=== PATIENT | male | born 1985 | race Caucasian/White ===

== ENCOUNTER 2018-01-01 11:38 | Inpatient (IN) | payer BC, SELFPAY ==
[2018-01-01 11:39] VITALS: BP 143/94; PULSE 109; RESP 18; TEMP 36.6; O2SAT 100; BMI 29.1
--- NOTE | 2018-01-01 11:50 | RAD_ITS ---
STUDY: X-RAY - RIGHT FOOT CLINICAL: Male, 32 years old. One-month history of open wound along the plantar surface of the great toe. TECHNIQUE: 3 view(s) of the foot. COMPARISON: None. FINDINGS: Normal talus, calcaneus, and tarsal bones. Normal visualized subtalar, talonavicular, calcaneocuboid, tarsal and tarsometatarsal articulations. Normal metatarsi. Normal metatarsophalangeal joint of the great toe. Normal tibial and fibular sesamoid bones. Normal interphalangeal joint of the great toe. Normal phalanges of the great toe. Normal second through fifth metatarsophalangeal joints. Normal interphalangeal joints and phalanges of the lesser toes. There is evidence of an ulceration along the plantar aspect of the interphalangeal joint of the great toe. Soft tissue swelling. RAD/Foot min 3 Views IMPRESSION: Soft tissue ulceration seen along the plantar aspect of the interphalangeal joint of the great toe Soft tissue swelling. Electronically Signed: Aj Bajwa MD at 13:23 EDT Tel [phone], Service support ,
--- NOTE | 2018-01-01 11:52 | ED.VISSUMM ---
- ER Visit Summary Date of Service: 01/01/18 Chief Complaint: Infected painful right foot History of Present Illness: The patient is a 32 M who presents with pain, swelling redness right foot for the past 1224 hrs. He has a hole on the bottom of his right great toe for the past 2-3 months. 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 He denies history of diabetes. He denies history of rheumatic fever, murmur, SPE, IV drug use to be an immune suppressed. He lives in [place]. He states he is employed in the area [employer]. He reports rash and popping up with penicillin. Please read written note for complete detail Physical Examination: Vital signs are marked for tachycardia. Not febrile. Head is atraumatic normocephalic. Pupils are equal round reactive. Extraocular muscles are intact. TMs are pearly white with landmarks noted. Nares patent with no drainage. Posterior pharynx without erythema or exudate. Uvula is midline. There is no dysphonia or dysphasia. Trachea is midline. There is no stridor with auscultation of the neck. Heart is regular without murmur, gallop or rub. S1 and S2 are normal. Lungs are clear to auscultation with good movement of air bilaterally. Right foot reveals a decubitus that does not appear infected plantar surface of the right great toe. The arch of the right foot is swollen erythematous and exquisitely painful. There may be fluctuance. DP and PT pulses are palpable. He has altered sensation to the foot. There is no lymphangitis. There is no popliteal lymphadenopathy. Test Results: Three-view x-ray of the foot was obtained with no evidence of osteomyelitis. There is ulceration noted on the plantar surface of the right great toe. There is no subtenons air noted either. White count elevated 12.5 thousand with 74 segs no bands. ESR is normal which is not surprising and CRP is elevated at 34.9. CRP rises sooner than ESR especially since onset of symptoms was 12 hours ago. Emergency Department Course and Treatment: X-ray of the foot was obtained to evaluate for subcu air and osteomyelitis since this is been a chronic problem that acutely got worse. Appropriate blood work was obtained and because of his allergy to penicillin he was treated with clindamycin 600 mg IV piggyback. Pharmacy was contacted since I am no longer able to enter clindamycin. Treatment Plan: Patient was informed he in all likelihood will require admission to the hospital with consultation to orthopedics. Disposition: 23 observation IV antibiotics and potential consultation with podiatry Impression: 1. Sepsis 2. Decubitus ulcer plantar surface great toe with cellulitis This note was generated with [employer] dictation software. It may contain incorrect words, spelling, and punctuation that were not noted in review of the chart prior to signing ED Disposition - Plan for ED Patient: Chief Complaint: Wound Check Referrals: NOT,DEFINED [NON-STAFF] -
--- NOTE | 2018-01-01 11:55 | ED.DCSUM_ITS ---
- ER Visit Summary Date of Service: 01/01/18 Chief Complaint: Infected painful right foot History of Present Illness: The patient is a 32 M who presents with pain, swelling redness right foot for the past 1224 hrs. He has a hole on the bottom of his right great toe for the past 2-3 months. 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 He denies history of diabetes. He denies history of rheumatic fever, murmur, SPE, IV drug use to be an immune suppressed. He lives in [place]. He states he is employed in the area [employer]. He reports rash and popping up with penicillin. Please read written note for complete detail Physical Examination: Vital signs are marked for tachycardia. Not febrile. Head is atraumatic normocephalic. Pupils are equal round reactive. Extraocular muscles are intact. TMs are pearly white with landmarks noted. Nares patent with no drainage. Posterior pharynx without erythema or exudate. Uvula is midline. There is no dysphonia or dysphasia. Trachea is midline. There is no stridor with auscultation of the neck. Heart is regular without murmur, gallop or rub. S1 and S2 are normal. Lungs are clear to auscultation with good movement of air bilaterally. Right foot reveals a decubitus that does not appear infected plantar surface of the right great toe. The arch of the right foot is swollen erythematous and exquisitely painful. There may be fluctuance. DP and PT pulses are palpable. He has altered sensation to the foot. There is no lymphangitis. There is no popliteal lymphadenopathy. Test Results: Three-view x-ray of the foot was obtained with no evidence of osteomyelitis. There is ulceration noted on the plantar surface of the right great toe. There is no subtenons air noted either. White count elevated 12.5 thousand with 74 segs no bands. ESR is normal which is not surprising and CRP is elevated at 34.9. CRP rises sooner than ESR especially since onset of symptoms was 12 hours ago. Emergency Department Course and Treatment: X-ray of the foot was obtained to evaluate for subcu air and osteomyelitis since this is been a chronic problem that acutely got worse. Appropriate blood work was obtained and because of his allergy to penicillin he was treated with clindamycin 600 mg IV piggyback. Pharmacy was contacted since I am no longer able to enter clindamycin. Treatment Plan: Patient was informed he in all likelihood will require admission to the hospital with consultation to orthopedics. Disposition: 23 observation IV antibiotics and potential consultation with podiatry Impression: 1. Sepsis 2. Decubitus ulcer plantar surface great toe with cellulitis This note was generated with [employer] dictation software. It may contain incorrect words, spelling, and punctuation that were not noted in review of the chart prior to signing ED Disposition - Plan for ED Patient: Chief Complaint: Wound Check Referrals: NOT,DEFINED [NON-STAFF] -
[2018-01-01 12:23] LABS: Erythrocyte Sedimentation Rate 11 mm/hr (0-15)
[2018-01-01 12:25] LABS: Absolute Lymphocyte Count 1.58 X10^3/ul (0.83-4.51); Absolute Neutrophil Count 9.3 X10^3/uL (2.0-7.7); Basophil# 0.03 X10^3/uL; Basophil% 0.2 % (0-1); Eosinophil# 0.42 X10^3/uL; Eosinophils% 3.4 % (0-5); Hemoglobin 13.4 g/dl (13.0-16.5); Lymphocyte # 1.58 X10^3/ul (4.0); Lymphocyte % 12.6 % (19-41); Mean Corp Hgb Conc 31.9 g/gl (32-36); Mean Corpuscular Hgb 26.6 pg (27.0-32.0); Mean Corpuscular Volume 83.5 fL (80-94); Monocyte# 1.18 X10^3/uL; Monocyte% 9.4 % (0-10); Neutrophil # 9.31 X10^3/uL (2.7-7.7); Neutrophil % 74.3 % (47-70); Platelet Count 326 K/mm3 (150-450); RBC Distribution Width CV 15.5 % (11.6-14.6); RBC Distribution Width SD 47.1 fl (35.1-43.9); Red Blood Count 5.03 M/mm3 (4.6-6.2); White Blood Count 12.5 K/mm3 (4.4-11.0)
[2018-01-01 12:31] LABS: Anion Gap 9 (5-15); BUN 7 mg/dL (7-18); BUN/Creat Ratio 6.7 RATIO (10-20); Calcium,Total 8.8 mg/dL (8.5-10.1); Chloride 103 mmol/L (98-107); Creatinine, Serum 1.05 mg/dL (0.70-1.30); EST Glomerular Filtration Rate 88 mL/min (>60); Est Glom Filt Rate - Afr Amer 106 mL/min (>60); Estimated Creatinine Clearance 111.88 ml/min; Glucose 91 mg/dL (74-106); POSITIVE COUNT NO; POSITIVE DIFFERENTIAL NO; POSITIVE MORPHOLOGY NO; Potassium 3.5 mmol/L (3.5-5.1); Sodium Level 138 mmol/L (136-145)
[2018-01-01] MEDS: 0.9% Normal Saline 1,000 ML 150 ML IV (12:39)
[2018-01-01] MEDS: Ondansetron 4 MG/2 ML Vial IV (12:40)
[2018-01-01] MEDS: Morphine 4 MG/ML Syringe IV (12:40)
[2018-01-01 13:30] VITALS: BP 134/86; PULSE 81; RESP 16; O2SAT 99
--- NOTE | 2018-01-01 13:38 | NURSING ---
[address] [facility]
--- NOTE | 2018-01-01 13:49 | PCM.HP.STD ---
History of Present Illness Date of Admission: 01/01/18 Chief Complaint: Right great toe ulcer for about 3 months The patient is a 32 year old M with history of L5-S1 disc herniation and decreased sensation, most probably from L5 neuropathy in right great toe came to ER with chronic ulcer right great toe for about 3 months. It usually started about blister which popped out resulting into ulcer. Patient denies any fever or chills but had nausea. Patient also took about 1-2 weeks of clindamycin and Bactrim as an outpatient about a month ago without much effect. Is allergic to insulin. Denies any chronic comorbidities including diabetes mellitus, hypertension Past Medical History Allergies Penicillins Allergy (Verified 01/01/18 11:41) Rash Home Medications: Ambulatory Orders Medication Instructions Recorded NK [NK] 01/01/18 Smoking Status: Never smoker - *Family History Paternal History Items: No pertinent history Review of Systems Constitutional: Denies: Chills, Fever, Weight Change HEENT: Denies: Head Aches, Sinus Congestion, Sinus Drainage Cardiovascular: Denies: Chest Pain, Palpitations Respiratory: Denies: Cough, Shortness of breath at rest, Sputum production Gastrointestinal: Reports: Nausea. Denies: Abdominal Pain, Vomiting Genitourinary: Denies: Dysuria Musculoskeletal: Denies: Joint Pain, Joint Tenderness Skin: Reports: Wounds. Denies: Rash Neurological: Denies: Numbness, Tingling, Focal weakness Psychiatric: Denies: Anxiety, Depression, Homicidal Ideations, Suicidal Ideations Hematologic/ Lymphatic: Denies: Easy Bruising, Easy Bleeding VTE Information - Inpt Only VTE Present on Admission: No VTE Mechan Device Prophylaxis: None VTE Pharm Prophylaxis ordered?: No Reason prophylaxis not ordered:: Procedure Not Indicated - Physical Exam General: Alert, Oriented x3, Cooperative HEENT: Atraumatic, PERRLA, EOMI, Normocephalic Neck: Supple, No JVD, Negative Carotid Bruits Lungs: Clear to auscultation, Normal air movement Cardiovascular: Regular rate, Normal S1, Normal S2, No murmurs Abdomen: Bowel Sounds Present, Soft, Non Tender Extremities: No edema, Capillary Refill Less than 3 Seconds Skin: Ulcer/ Wound - Right great toe ulcer about 2 cm on plantar aspect, floor covered with slough. Chronic in nature with fibrosis around it. Musculoskeletal: No Tenderness to Palpation of Joints or Extremities Neurological: Cranial nerves II-XII grossly intact Psych/Mental Status: Normal Affect, Appropriate Vital Signs Temp Pulse Resp BP Pulse Ox 98 F 81 16 134/86 H 99 01/01/18 11:39 01/01/18 13:30 01/01/18 13:30 01/01/18 13:30 01/01/18 13:30 Assessment/Plan The patient is a 32 year old M with history of L5-S1 disc herniation and decreased sensation, most probably from L5 neuropathy in right great toe came to ER with chronic ulcer right great toe for about 3 months. It usually started about blister which popped out resulting into ulcer. Patient denies any fever or chills but had nausea. Patient also took about 1-2 weeks of clindamycin and Bactrim as an outpatient about a month ago without much effect. He is allergic to penicillin. Denies any chronic comorbidities including diabetes mellitus, hypertension 1. Right great toe chronic nonhealing ulcer, plantar aspect: Patient is being admitted on regular [facility] floor for IV antibiotics, wound debridement and podiatry consult. Patient is started on IV cefazolin. Deep wound culture. Foot x-ray shows soft tissue ulceration along the plantar aspect of the interphalangeal joint of great toe but no osteomyelitis. We will leave the decision of MRI on nurse healthcare manager. 2. L5-S1 disc herniation with peripheral neuropathy: Check folic acid and vitamin B12 and A1c. 3. DVT prophylaxis: Low risk. prophylaxis not indicated Clinical Impression(s) from Imaging Studies Foot X-Ray 01/01/18 11:50 IMPRESSION: Soft tissue ulceration seen along the plantar aspect of the interphalangeal joint of the great toe Soft tissue swelling. Laboratory Results 01/01/18 12:05: WBC 12.5 H, RBC 5.03, Hgb 13.4, Hct 42.0, MCV 83.5, MCH 26.6 L, MCHC 31.9 L, RDW 15.5 H, RDW Differential 47.1 H, Plt Count 326, MPV 10.0, Immature Gran % (Auto) 0.100, Neut % (Auto) 74.3 H, Lymph % (Auto) 12.6 L, [place] % (Auto) 9.4, Eos % (Auto) 3.4, Baso % (Auto) 0.2, Absolute Neuts (auto) 9.3 H, Absolute Lymphs (auto) 1.58, Total Counted Not Reportable, ESR 11 01/01/18 12:05: Sodium 138, Potassium 3.5, Chloride 103, Carbon Dioxide 26.0, Anion Gap 9, BUN 7, Creatinine 1.05, Estim Creat Clear Calc 111.88, Est GFR (MDRD) Af Amer 106, Est GFR (MDRD) Non-Af 88, BUN/Creatinine Ratio 6.7 L, Glucose 91, Calcium 8.8, C-React Prot Ext Range 34.90 H Code Visit Inpatient E&M: 83767 Init Hosp L2
[2018-01-01 14:52] VITALS: BMI 30.9; BMI 31.0
[2018-01-01 14:57] VITALS: BP 121/72; PULSE 93; RESP 12; TEMP 37.7; O2SAT 98
--- NOTE | 2018-01-01 15:53 | NURSING ---
wound photo: right great toe
--- NOTE | 2018-01-01 15:53 | NURSING ---
wound photo: right great toe
[2018-01-01] MEDS: oxyCODONE 5 MG Tablet PO (16:02)
[2018-01-01] MEDS: 0.9% Normal Saline 1,000 ML 100 ML IV (16:07)
[2018-01-01 17:21] LABS: Vitamin B12 556 pg/mL (211-911)
--- NOTE | 2018-01-01 18:41 | CON.PCM_ITS ---
Reason for Consult Date of Consultation: 01/01/18 Reason for Consultation: Right great toe ulceration w/ infection History of Present Illness: The patient is a 32 year old gentleman was seen today for right 1st toe ulceration with infection present. He has history of back injury to L5-S1 while in the ; this injury has resolved in peripheral neuropathy, he relates to neuropathic pains in feet, as well as numbness present. He relates he developed a blister to the bottom of the right 1st toe a couple months ago, relates it turned into a wound and has been worsening. He relates today it turned red and rest of foot become painful so he came to the hospital for further evaluation and management. He relates he has been trying to care for the wound at home. He relates he is on feet up to 18-19 hours per day. He relates he had a similar episode like this last year which resulted in him having to go to a wound center and was off work for 6 months, but he relates it did eventually heal - he relates wound was not as bad as it is now. Patient relates he is from [place], [place], here in the area for work. He relates he is planning on going back home to [place] this Sunday. Otherwise patient relates he has no fever, chills, or vomiting. He relates he has had some nausea today. He denies history of diabetes. Due to the ulceration w/ cellulitis, the patient was admitted. Podiatry was consulted by the medicine team. Past Medical History Allergies Penicillins Allergy (Verified 01/01/18 11:41) Rash Home Medications: Ambulatory Orders Medication Instructions Recorded NK [NK] 01/01/18 Smoking Status: Former smoker Tobacco Use: Cigarettes - *Family History Paternal History Items: No pertinent history Review of Systems Constitutional: Denies: Chills, Fever Gastrointestinal: Reports: Vomiting. Denies: Nausea Musculoskeletal: Reports: Foot Pain Skin: Reports: Wounds - Physical Exam General: Alert, Oriented x3, Cooperative, No apparent distress Extremities: No cyanosis, Capillary Refill Less than 3 Seconds, No Calf Tenderness, Edema - Right foot secondary to infection, Peripheral Pulses Normal Skin: Ulcer/ Wound - Quarter sized ulceration plantar hallux IPJ level on the right foot down to the subcataneous tissue layer and flexor tendon, there is serous drainage as well as significant cellulitis to the hallux extending to the dorsal foot, there is central area of nonviable, fibrotic, necrotic tissue of the ulcer site, margins of the ulcer with granular tissue, there is some hyperkeratotic callus to the margins of the ulceration, there is no probe to bone, but probes close to bone as there is soft tissue covering present; there is no maloder, no visible abscess, no fluctuance; there is dorsiflexion deformity of the right hallux with very limited ROM of the hallux IPJ on the right foot. Otherwise no other open lesions bilateral foot/ankle, CFT < 2 seconds to all toes with pedal pulses intact. There is a HPK callus plantar left hallux sub IPJ as well. Sensation absent to the hallux w/ peripheral neuropathy bilateral foot - there is no POP or pain on ROM to the right foot c/ w his peripheral neuropathy. Muscle strength intact and muscle mass WNL otherwise to the foot/ankle. No evidence of compartment syndrome, no hypersensitivity to the foot or ankle bilateral. Vital Signs Temp Pulse Resp BP Pulse Ox 99.8 F H 93 12 121/72 H 98 01/01/18 14:57 01/01/18 14:57 01/01/18 14:57 01/01/18 14:57 01/01/18 14:57 Oxygen Delivery Method Room Air Weight: 103.6 kg Body Mass Index (BMI) 30.9 Laboratory Tests Past 24 Hrs 01/01/18 01/01/18 15:20 16:34 Vitamin B12 556 S.aureus Protein A PCR Pending MRSA (PCR) Pending Assessment/Plan Ulceration down to tendon of the plantar hallux, right foot Cellulitis, right foot Deformed right hallux Concern for osteomyelitis right foot Peripheral neuropathy bilateral lower extremity secondary to back injury while in Reviewed diagnostic data. WBC was noted to be elevated at 12.5, ESR normal, CRP is elevated at 34.9, ha1c is normal. Xrays were obtained of the right foot - these were reviewed, it was noted there is bone changes to the distal medial aspect of the head of the hallux proximal phalanx concerning for osteomyelitis. Also it is noted there is dorsiflexion deformity of the distal phalanx on the proximal phalanx of the hallux w/ subluxation of the hallux IPJ. An MRI has been ordered for further evaluation. A culture has been obtained, and results pending. Patient is on board spectrum IV antibiotic at this time, continue to follow cultures and adjust antibiotics as needed. A dressing of aquacel Ag, 4x4 gauze, kerlix and malika applied to right foot. No weightbearing on right forefoot. This was discussed with patient. Podiatry will continue to follow.
[2018-01-01 19:09] LABS: M R Staph aureus DNA By PCR Negative (Negative); Probe Check PASS; Staph aureus DNA By PCR POSITIVE (Negative)
[2018-01-01] MEDS: Morphine 2 MG/ML Syringe IV (19:21)
[2018-01-01 20:37] VITALS: BP 99/63; PULSE 82; RESP 16; TEMP 37.1; O2SAT 98
[2018-01-02] VITALS (11 sets, daily range): BP systolic 93–162; BP diastolic 57–88; PULSE 67–102; RESP 16–18; TEMP 36.4–37.7; O2SAT 97–100; BMI 30.9
[2018-01-02] MEDS: oxyCODONE 5 MG Tablet PO (02:33)
[2018-01-02 05:53] LABS: Absolute Lymphocyte Count 2.36 X10^3/ul (0.83-4.51); Absolute Neutrophil Count 6.6 X10^3/uL (2.0-7.7); Basophil# 0.03 X10^3/uL; Basophil% 0.3 % (0-1); Eosinophil# 0.58 X10^3/uL; Eosinophils% 5.4 % (0-5); Hematocrit 36.7 % (40-54); Hemoglobin 11.7 g/dl (13.0-16.5); Lymphocyte # 2.36 X10^3/ul (4.0); Lymphocyte % 21.8 % (19-41); Mean Corp Hgb Conc 31.9 g/gl (32-36); Mean Corpuscular Hgb 27.1 pg (27.0-32.0); Mean Platelet Vol. 10.6 fl (6.2-12.0); Monocyte# 1.21 X10^3/uL; Monocyte% 11.2 % (0-10); Platelet Count 315 K/mm3 (150-450); RBC Distribution Width CV 15.6 % (11.6-14.6); RBC Distribution Width SD 48.4 fl (35.1-43.9); Red Blood Count 4.32 M/mm3 (4.6-6.2); White Blood Count 10.8 K/mm3 (4.4-11.0)
[2018-01-02 06:02] LABS: POSITIVE COUNT NO; POSITIVE DIFFERENTIAL NO; POSITIVE MORPHOLOGY NO
[2018-01-02 06:10] LABS: Anion Gap 8 (5-15); BUN 13 mg/dL (7-18); BUN/Creat Ratio 11.6 RATIO (10-20); Calcium,Total 8.6 mg/dL (8.5-10.1); Chloride 106 mmol/L (98-107); Creatinine, Serum 1.12 mg/dL (0.70-1.30); EST Glomerular Filtration Rate 81 mL/min (>60); Est Glom Filt Rate - Afr Amer 98 mL/min (>60); Estimated Creatinine Clearance 104.89 ml/min; Glucose 95 mg/dL (74-106); Potassium 4.2 mmol/L (3.5-5.1); Sodium Level 141 mmol/L (136-145)
[2018-01-02] MEDS: Morphine 2 MG/ML Syringe IV ×3 (07:14→21:45)
[2018-01-02] MEDS: 0.9% NaCl Peripheral Flush Adult/Peds IV ×2 (07:14→21:46)
--- NOTE | 2018-01-02 07:30 | MRI_ITS ---
STUDY: MRI RIGHT FOREFOOT WITHOUT CONTRAST REASON FOR EXAM: Ulcer at the plantar aspect of the great toe for 2 months, osteomyelitis. TECHNIQUE: Standardized fat and water weighted pulse sequences were obtained in all 3 orthogonal planes. COMPARISON: Radiographs 01/01/2018. FINDINGS: Normal metatarsophalangeal joint of the hallux. Normal tibial and fibular sesamoids, with normal sesamoids-first metatarsal articulations. There is bone edema of the proximal and distal phalanges of the great toe (inversion recovery sagittal images 7-15) with corresponding decreased T1 bone marrow signal (T1 sagittal images 8-14) consistent with osteomyelitis. There is a small effusion and dorsal subluxation of the interphalangeal joint of the great toe (inversion recovery sagittal images 10, 11). Normal medial and lateral heads of the flexor hallucis brevis tendons. There is a tear of the flexor hallucis longus tendon retracted to the level of the distal metatarsal diaphysis (inversion recovery sagittal image 8). Normal second through fifth metatarsophalangeal (MTP) joints. Normal interphalangeal joints of the second through fifth toes. Normal proximal, middle and distal phalanges of the second through fifth toes. There is soft tissue fullness at the plantar aspect of the second webspace (T1 series 3 image 21) measuring 0.4 cm in AP dimension. Normal flexor and extensor tendons of the second through fifth toes. Normal visualized metatarsi. There is edema in the flexor hallucis brevis muscles (T2 series 4 images 9-12) suggestive of myositis. There is an ulcer at the plantar aspect of the interphalangeal joint of the great toe. There is edema in the subcutis adipose space without demonstrated soft tissue abscess. There is mild bone edema in the navicular (inversion recovery sagittal images 15-17), likely a stress phenomenon. MRI/Lower Ext/No Jt/w/o IMPRESSION: Osteomyelitis of the proximal and distal phalanges of the great toe. Small effusion and dorsal subluxation of the interphalangeal joint of the great toe. Tear of the flexor hallucis longus tendon. Myositis of the flexor hallucis brevis muscles. Ulcer at the plantar aspect of the great toe and edema in the subcutis adipose space. Soft tissue fullness at the plantar aspect of the second webspace suggestive of a small intermetatarsal neuroma. Mild bone edema in the navicular, likely a stress phenomenon. Electronically Signed: Kirill Altamirano MD at 9:16 EDT Tel , Service support ,
--- NOTE | 2018-01-02 08:02 | PN_ITS ---
Vitals/I&O's: Vital Signs Temp Pulse Resp BP Pulse Ox 98.5 F 78 16 105/57 L 97 01/02/18 07:13 01/02/18 07:13 01/02/18 07:13 01/02/18 07:13 01/02/18 07:13 Oxygen Delivery Method Room Air Weight: 103.6 kg Body Mass Index (BMI) 30.9 Intake and Output for Last 24 Hours 12/31/17 01/01/18 01/02/18 23:59 23:59 23:59 Intake Total 1483 / 1483 Balance 1483 / 1483 Laboratory Results 01/01/18 15:20: S.aureus Protein A PCR POSITIVE H, MRSA (PCR) Negative 01/01/18 16:34: Vitamin B12 556 01/02/18 05:15: WBC 10.8, RBC 4.32 L, Hgb 11.7 L, Hct 36.7 L, MCV 85.0, MCH 27.1 , MCHC 31.9 L, RDW 15.6 H, RDW Differential 48.4 H, Plt Count 315, MPV 10.6, Immature Gran % (Auto) 0.300, Neut % (Auto) 61.0, Lymph % (Auto) 21.8, [place] % ( Auto) 11.2 H, Eos % (Auto) 5.4 H, Baso % (Auto) 0.3, Absolute Neuts (auto) 6.6, Absolute Lymphs (auto) 2.36, Total Counted Not Reportable 01/02/18 05:15: Sodium 141, Potassium 4.2, Chloride 106, Carbon Dioxide 27.0, Anion Gap 8, BUN 13, Creatinine 1.12, Estim Creat Clear Calc 104.89, Est GFR ( MDRD) Af Amer 98, Est GFR (MDRD) Non-Af 81, BUN/Creatinine Ratio 11.6, Glucose 95, Calcium 8.6 Current Medications Acetaminophen (Tylenol) 650 mg PO Q6H PRN PRN PRN Reason: Mild Pain (scale 0-3)/T>100.7 Levofloxacin 500 mg/ N/A 100 mls @ 100 mls/hr IV Q24 DAREK Last Admin: 01/01/18 16:07 Dose: 100 mls/hr Morphine Sulfate () 1 - 2 mg IV Q4H PRN PRN PRN Reason: SEVERE PAIN (6-10/10) Last Admin: 01/02/18 07:14 Dose: 2 mg Ondansetron HCl (Zofran) 4 mg IV Q8H PRN PRN PRN Reason: Nausea Oxycodone HCl (Oxyir) 5 mg PO Q4H PRN PRN PRN Reason: Moderate Pain (pain scale 4-5) Last Admin: 01/02/18 02:33 Dose: 5 mg Sodium Chloride () 5 - 30 ml IV UD PRN PRN Reason: SALINE FLUSH Last Admin: 01/02/18 07:14 Dose: 10 ml Medical Necessity - Tobacco Use Smoking Status: Former smoker Tobacco Use: Cigarettes
--- NOTE | 2018-01-02 10:40 | CASEMGMT ---
Addendum entered by Arabella Larson 01/02/18 13:54: Consult made to Mikayla CALDWELL re: advanced directives. Original Note: SEE RN STEPH ASSESS LINK: D/C PLAN: TBD Intro self and role to RN STEPH. Pt resting in bed, awake/alert/oriented. Pt agreeable to assessment and able to answer all questions appropriately. Pt lives in [place] with his mother and 3-yr-old daughter. -Has been in [place] for about a week working and was planning on returning home in [place] on Sunday. 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 He states his mom is also available to come pick him up to drive him back if needed as well. -Was independent with ambulation and all ADL's prior to admission and required no DME but would like crutches d/t infection and pain to right foot. Script obtained from Dr Peña and faxed to [facility]. Confirmation received from [facility] and they will deliver the crutches to pt's room prior to discharge. -Pharmacy is in [place] but would like [facility] retail pharmacy upon discharge. -States he had HHC last year in [place] for 6 weeks of IV antibiotics but does not remember the name of the C agency. The agency was in [place], [place]. If IV ATB's would need set up in [place] on discharge, states he has no preference of HHC or Infusion supply company from his local area. -Denies having other concerns or needs at this time. CM to continue to follow for any further discharge planning needs that may arise. Chris JARA RN, CM
--- NOTE | 2018-01-02 11:43 | PCM.HP.ID ---
Problem List (1) Osteomyelitis Status: Acute Reason for Consult: osteo Consulted by: Dr. Pierson History of Present Illness: The patient is a 32 year old M with peripheral neuropathy due to disc problem, h/o toe blister and osteo starting a year ago requiring 6 weeks iv abx with picc in [place]. Still with trouble healing that R toe, acutely developed redness, swelling, purulent drainage. No fever or chills. Some nausea. No recent abx. Came to ED, given clinda, changed to levaquin. Podiatry consulted. MRI showed osteo. Full ROS performed and neg except as noted above. - Medical History Allergies/Adverse Reactions: Allergies Penicillins Allergy (Verified 01/01/18 11:41) Rash Home Medications: Ambulatory Orders Medication Instructions Recorded NK [NK] 01/01/18 - Social History Tobacco Use: cigarettes Vital Signs Temp Pulse Resp BP Pulse Ox 98.2 F 80 18 130/79 H 98 01/02/18 09:27 01/02/18 09:33 01/02/18 09:27 01/02/18 09:27 01/02/18 09:27 Oxygen Delivery Method Room Air Weight: 103.6 kg Body Mass Index (BMI) 30.9 Microbiology Past 72 Hours 01/01/18 15:20 Gram Stain - Final Wound Drainage - Aerobic Swab Wound Culture - Preliminary Staphylococcus aureus Laboratory Tests Past 24 Hrs 01/01/18 01/01/18 01/02/18 15:20 16:34 05:15 WBC 10.8 RBC 4.32 L Hgb 11.7 L Hct 36.7 L MCV 85.0 MCH 27.1 MCHC 31.9 L RDW 15.6 H RDW Differential 48.4 H Plt Count 315 MPV 10.6 Immature Gran % (Auto) 0.300 Neut % (Auto) 61.0 Lymph % (Auto) 21.8 [place] % (Auto) 11.2 H Eos % (Auto) 5.4 H Baso % (Auto) 0.3 Absolute Neuts (auto) 6.6 Absolute Lymphs (auto) 2.36 Total Counted Not Reportable Sodium Potassium Chloride Carbon Dioxide Anion Gap BUN Creatinine Estim Creat Clear Calc Est GFR (MDRD) Af Amer Est GFR (MDRD) Non-Af BUN/Creatinine Ratio Glucose Calcium Vitamin B12 556 S.aureus Protein A PCR POSITIVE H MRSA (PCR) Negative 01/02/18 05:15 WBC RBC Hgb Hct MCV MCH MCHC RDW RDW Differential Plt Count MPV Immature Gran % (Auto) Neut % (Auto) Lymph % (Auto) [place] % (Auto) Eos % (Auto) Baso % (Auto) Absolute Neuts (auto) Absolute Lymphs (auto) Total Counted Sodium 141 Potassium 4.2 Chloride 106 Carbon Dioxide 27.0 Anion Gap 8 BUN 13 Creatinine 1.12 Estim Creat Clear Calc 104.89 Est GFR (MDRD) Af Amer 98 Est GFR (MDRD) Non-Af 81 BUN/Creatinine Ratio 11.6 Glucose 95 Calcium 8.6 Vitamin B12 S.aureus Protein A PCR MRSA (PCR) - Other Studies Radiology: [] reviewed Other Studies: [] Route of nutrition/ use of supplements: [] Nutritional Intake: [] IV Site: [] Fuller Catheter: [] - Physical Exam General: Alert, Oriented x3, Cooperative, No apparent distress HEENT: Atraumatic, PERRLA, EOMI Neck: Supple, No Nodes Lungs: Clear to auscultation, Normal air movement Cardiovascular: Regular rate, Regular Rhythm, No murmurs Abdomen: Bowel Sounds Present, Soft, Non Tender, Non-Distended Extremities: No edema Skin: Ulcer/ Wound - R foot wrapped IV Site: Peripheral, without redness Musculoskeletal: No Tenderness to Palpation of Joints or Extremities Neurological: Cranial nerves II-XII grossly intact - Assessment/Plan Antibiotics: [] Assessment/Plan: [] R 1st toe MSSA osteo - Podiatry following. Reports rash with PCN but has tolerated amoxicillin with no issue. He has prior osteo in that toe; interested in amputation now. On levaquin, will add cefazolin and po flagyl. MRSA neg. If amputation is done, should only need short course of po abx. Will follow, thank you.
--- NOTE | 2018-01-02 11:47 | CON.PCM_ITS ---
Problem List (1) Osteomyelitis Status: Acute Reason for Consult: osteo Consulted by: Dr. Pierson History of Present Illness: The patient is a 32 year old M with peripheral neuropathy due to disc problem, h /o toe blister and osteo starting a year ago requiring 6 weeks iv abx with picc in [place]. Still with trouble healing that R toe, acutely developed redness, swelling, purulent drainage. No fever or chills. Some nausea. No recent abx. Came to ED, given clinda, changed to levaquin. Podiatry consulted. MRI showed osteo. Full ROS performed and neg except as noted above. - Medical History Allergies/Adverse Reactions: Allergies Penicillins Allergy (Verified 01/01/18 11:41) Rash Home Medications: Ambulatory Orders Medication Instructions Recorded NK [NK] 01/01/18 - Social History Tobacco Use: cigarettes Vital Signs Temp Pulse Resp BP Pulse Ox 98.2 F 80 18 130/79 H 98 01/02/18 09:27 01/02/18 09:33 01/02/18 09:27 01/02/18 09:27 01/02/18 09:27 Oxygen Delivery Method Room Air Weight: 103.6 kg Body Mass Index (BMI) 30.9 Microbiology Past 72 Hours 01/01/18 15:20 Gram Stain - Final Wound Drainage - Aerobic Swab Wound Culture - Preliminary Staphylococcus aureus Laboratory Tests Past 24 Hrs 01/01/18 01/01/18 01/02/18 15:20 16:34 05:15 WBC 10.8 RBC 4.32 L Hgb 11.7 L Hct 36.7 L MCV 85.0 MCH 27.1 MCHC 31.9 L RDW 15.6 H RDW Differential 48.4 H Plt Count 315 MPV 10.6 Immature Gran % (Auto) 0.300 Neut % (Auto) 61.0 Lymph % (Auto) 21.8 [place] % (Auto) 11.2 H Eos % (Auto) 5.4 H Baso % (Auto) 0.3 Absolute Neuts (auto) 6.6 Absolute Lymphs (auto) 2.36 Total Counted Not Reportable Sodium Potassium Chloride Carbon Dioxide Anion Gap BUN Creatinine Estim Creat Clear Calc Est GFR (MDRD) Af Amer Est GFR (MDRD) Non-Af BUN/Creatinine Ratio Glucose Calcium Vitamin B12 556 S.aureus Protein A PCR POSITIVE H MRSA (PCR) Negative 01/02/18 05:15 WBC RBC Hgb Hct MCV MCH MCHC RDW RDW Differential Plt Count MPV Immature Gran % (Auto) Neut % (Auto) Lymph % (Auto) [place] % (Auto) Eos % (Auto) Baso % (Auto) Absolute Neuts (auto) Absolute Lymphs (auto) Total Counted Sodium 141 Potassium 4.2 Chloride 106 Carbon Dioxide 27.0 Anion Gap 8 BUN 13 Creatinine 1.12 Estim Creat Clear Calc 104.89 Est GFR (MDRD) Af Amer 98 Est GFR (MDRD) Non-Af 81 BUN/Creatinine Ratio 11.6 Glucose 95 Calcium 8.6 Vitamin B12 S.aureus Protein A PCR MRSA (PCR) - Other Studies Radiology: [] reviewed Other Studies: [] Route of nutrition/ use of supplements: [] Nutritional Intake: [] IV Site: [] Fuller Catheter: [] - Physical Exam General: Alert, Oriented x3, Cooperative, No apparent distress HEENT: Atraumatic, PERRLA, EOMI Neck: Supple, No Nodes Lungs: Clear to auscultation, Normal air movement Cardiovascular: Regular rate, Regular Rhythm, No murmurs Abdomen: Bowel Sounds Present, Soft, Non Tender, Non-Distended Extremities: No edema Skin: Ulcer/ Wound - R foot wrapped IV Site: Peripheral, without redness Musculoskeletal: No Tenderness to Palpation of Joints or Extremities Neurological: Cranial nerves II-XII grossly intact - Assessment/Plan Antibiotics: [] Assessment/Plan: [] R 1st toe MSSA osteo - Podiatry following. Reports rash with PCN but has tolerated amoxicillin with no issue. He has prior osteo in that toe; interested in amputation now. On levaquin, will add cefazolin and po flagyl. MRSA neg. If amputation is done, should only need short course of po abx. Will follow, thank you.
--- NOTE | 2018-01-02 12:25 | CASEMGMT ---
SW gave pt information for POA in [place], reviewed the form w/pt. Pt states he will likely put his mother down as POA. Pt will follow up to completed forms in [place]. RICH Guidry, TOPOGRAPHICAL DRAFTER
--- NOTE | 2018-01-02 12:49 | PCM.DC ---
- Discharge Diagnoses Current Active Problems: Current Active and Chronic Problems Osteomyelitis (Acute) Reason(s) for Visit for Discharge Instructions: Right foot osteomyelitis You will use the following diet at home:: Regular Your food should be the consistency of: Regular Your liquids should be the consistency of: Regular/Thin Discharge Activity: Return to Normal Activity Additional Instructions: Go straight to the ED in [place] on discharge from the hospital for evaluation for surgery. Allergies/Adverse Reactions: Allergies Penicillins Allergy (Verified 01/01/18 11:41) Rash Medications to take at Discharge NK [NK] 01/01/18 Primary Care Physician: NOT,DEFINED [NON-STAFF] - Please follow up with your Primary Care Physician in: within 2 weeks Test Results: Test results from this visit will be discussed in further detail at your follow-up appointment, if applicable. Proposed Discharge Date: 01/02/18
--- NOTE | 2018-01-02 12:57 | DCINST_ITS ---
- Discharge Diagnoses Current Active Problems: Current Active and Chronic Problems Osteomyelitis (Acute) Reason(s) for Visit for Discharge Instructions: Right foot osteomyelitis You will use the following diet at home:: Regular Your food should be the consistency of: Regular Your liquids should be the consistency of: Regular/Thin Discharge Activity: Return to Normal Activity Additional Instructions: Go straight to the ED in [place] on discharge from the hospital for evaluation for surgery. Allergies/Adverse Reactions: Allergies Penicillins Allergy (Verified 01/01/18 11:41) Rash Medications to take at Discharge NK [NK] 01/01/18 Primary Care Physician: NOT,DEFINED [NON-STAFF] - Please follow up with your Primary Care Physician in: within 2 weeks Test Results: Test results from this visit will be discussed in further detail at your follow- up appointment, if applicable. Proposed Discharge Date: 01/02/18
--- NOTE | 2018-01-02 13:01 | DS.PCM_ITS ---
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
--- NOTE | 2018-01-02 13:35 | CASEMGMT ---
RN STEPH NOTE:: Phone conversation with Dr Peña as follows: -Pt had discharge orders w/plans of pt going back to [place] today and going directly to local hospital in [place] to be admitted for surgery. Dr Peña states he is cancelling discharge at this time and is planning on doing surgery today. Pt is aware and is agreeable to this and denies having any questions or concerns at this time. -Dr Peña anticipates discharge Sunday or Sunday with pt returning to [place] at that time. Per Dr Isaac consultation report, anticipates oral antibiotics on discharge if amputation done. CM to follow for any further discharge planning needs that may arise. Chris JARA RN CM
[2018-01-02] MEDS: Cefazolin 2 GM in 0.9% Normal Saline 100 ML IV ×2 (14:27→21:46)
--- NOTE | 2018-01-02 16:05 | PCM.PN.HOSP ---
Patient Problems: Active and Suspected Problems Osteomyelitis (Acute) Subjective: Patient was seen and examined. Denies any new complaints. Denies any fever or chills or shortness of breath. No nausea or vomiting or diarrhea. Discussed extensively with Dr. Peña, patient's MRI shows osteomyelitis of the proximal and distal phalanges of the great toe with a small effusion and dorsal subluxation of the interphalangeal joint of the great toe as well as tear of the flexor hallucis longus tendon and myositis of the flexor hallucis brevis muscles. The initial plan was patient will be discharged to follow-up in an [facility] in [place] for I&D and possible amputation. Patient was subsequently discharged to go straight to the ED but upon further discussion with Dr. Bernal and, patient reports [facility] has no personal care home administrator and it looks like is going to be taxing for him to get to the [facility]. Upon discussion, patient had agreed to stay for I&D and possibly be discharged on Sunday. Vitals/I&O's: Vital Signs Temp Pulse Resp BP Pulse Ox 98.3 F 100 18 162/88 H 98 01/02/18 14:23 01/02/18 14:23 01/02/18 14:23 01/02/18 14:23 01/02/18 14:23 Oxygen Delivery Method Room Air Weight: 103.6 kg Body Mass Index (BMI) 30.9 Intake and Output for Last 24 Hours 12/31/17 01/01/18 01/02/18 23:59 23:59 23:59 Intake Total 2062 Balance 2062 General: Alert, Oriented x3, Cooperative HEENT: Atraumatic, PERRLA, EOMI, Normocephalic Oral: Moist Mucosa Neck: Supple, No JVD, Negative Carotid Bruits Lungs: Clear to auscultation, Normal air movement Cardiovascular: Regular rate, Regular Rhythm, Normal S1, Normal S2, No murmurs Abdomen: Bowel Sounds Present, Soft, Non Tender, Non-Distended, No Hepato-splenomegaly Extremities: Edema - Trace edema of the right lower extremity, right foot dressed up and malika-wrapped. Skin: No rashes, No breakdown Musculoskeletal: No Tenderness to Palpation of Joints or Extremities Neurological: Cranial nerves II-XII grossly intact Psych/Mental Status: Normal Affect, Appropriate Microbiology Past 72 Hours 01/01/18 15:20 Wound Drainage - Aerobic Swab Gram Stain - Final 01/01/18 15:20 Wound Drainage - Aerobic Swab Wound Culture - Preliminary Staphylococcus aureus Laboratory Results 01/01/18 15:20: S.aureus Protein A PCR POSITIVE H, MRSA (PCR) Negative 01/01/18 16:34: Vitamin B12 556 01/02/18 05:15: WBC 10.8, RBC 4.32 L, Hgb 11.7 L, Hct 36.7 L, MCV 85.0, MCH 27.1, MCHC 31.9 L, RDW 15.6 H, RDW Differential 48.4 H, Plt Count 315, MPV 10.6, Immature Gran % (Auto) 0.300, Neut % (Auto) 61.0, Lymph % (Auto) 21.8, [place] % (Auto) 11.2 H, Eos % (Auto) 5.4 H, Baso % (Auto) 0.3, Absolute Neuts (auto) 6.6, Absolute Lymphs (auto) 2.36, Total Counted Not Reportable 01/02/18 05:15: Sodium 141, Potassium 4.2, Chloride 106, Carbon Dioxide 27.0, Anion Gap 8, BUN 13, Creatinine 1.12, Estim Creat Clear Calc 104.89, Est GFR (MDRD) Af Amer 98, Est GFR (MDRD) Non-Af 81, BUN/Creatinine Ratio 11.6, Glucose 95, Calcium 8.6 Current Medications Acetaminophen (Tylenol) 650 mg PO Q6H PRN PRN PRN Reason: Mild Pain (scale 0-3)/T>100.7 Levofloxacin 500 mg/ N/A 100 mls @ 100 mls/hr IV Q24 [facility] Last Admin: 01/02/18 09:39 Dose: 100 mls/hr Cefazolin Sodium 2 gm/ Sodium (Chloride) 110 mls @ 150 mls/hr IV Q8 [facility] Last Admin: 01/02/18 14:27 Dose: 150 mls/hr Metronidazole (Flagyl) 500 mg PO TID [facility] Morphine Sulfate () 1 - 2 mg IV Q4H PRN PRN PRN Reason: SEVERE PAIN (6-10/10) Last Admin: 01/02/18 14:28 Dose: 2 mg Ondansetron HCl (Zofran) 4 mg IV Q8H PRN PRN PRN Reason: Nausea Oxycodone HCl (Oxyir) 5 mg PO Q4H PRN PRN PRN Reason: Moderate Pain (pain scale 4-5) Last Admin: 01/02/18 02:33 Dose: 5 mg Sodium Chloride () 5 - 30 ml IV UD PRN PRN Reason: SALINE FLUSH Last Admin: 01/02/18 07:14 Dose: 10 ml Medical Necessity - Tobacco Use Smoking Status: Former smoker Tobacco Use: Cigarettes Assessment/Plan All Active Problems Osteomyelitis (Acute) 32-year-old male, resident in [place], working in [email or web address] at the moment, history of peripheral neuropathy secondary to traumatic back injury/herniated disc who comes in with complaints of infected painful right foot. 1. Right proximal and distal great toe phalanges osteomyelitis, cultures growing MSSA, MRSA PCR is negative ID podiatry consulted, On IV cefazolin, Levaquin and p.o. Flagyl 2. Right foot myositis with possible abscess, in the region of the ulcer, going for wound debridement and I & D tomorrow, On antibiotics 3. Peripheral neuropathy 4. DVT prophylaxis with early ambulation Code Visit Inpatient E&M: 54928 Subs Hosp L2
--- NOTE | 2018-01-02 16:10 | PN_ITS ---
Patient Problems: Active and Suspected Problems Osteomyelitis (Acute) Subjective: Patient was seen and examined. Denies any new complaints. Denies any fever or chills or shortness of breath. No nausea or vomiting or diarrhea. Discussed extensively with Dr. Peña, patient's MRI shows osteomyelitis of the proximal and distal phalanges of the great toe with a small effusion and dorsal subluxation of the interphalangeal joint of the great toe as well as tear of the flexor hallucis longus tendon and myositis of the flexor hallucis brevis muscles. The initial plan was patient will be discharged to follow-up in an [facility] in [place] for I&D and possible amputation. Patient was subsequently discharged to go straight to the ED but upon further discussion with Dr. Bernal and, patient reports [facility] has no pmp project manager and it looks like is going to be taxing for him to get to the [facility]. Upon discussion, patient had agreed to stay for I&D and possibly be discharged on Sunday. Vitals/I&O's: Vital Signs Temp Pulse Resp BP Pulse Ox 98.3 F 100 18 162/88 H 98 01/02/18 14:23 01/02/18 14:23 01/02/18 14:23 01/02/18 14:23 01/02/18 14:23 Oxygen Delivery Method Room Air Weight: 103.6 kg Body Mass Index (BMI) 30.9 Intake and Output for Last 24 Hours 12/31/17 01/01/18 01/02/18 23:59 23:59 23:59 Intake Total 2062 Balance 2062 General: Alert, Oriented x3, Cooperative HEENT: Atraumatic, PERRLA, EOMI, Normocephalic Oral: Moist Mucosa Neck: Supple, No JVD, Negative Carotid Bruits Lungs: Clear to auscultation, Normal air movement Cardiovascular: Regular rate, Regular Rhythm, Normal S1, Normal S2, No murmurs Abdomen: Bowel Sounds Present, Soft, Non Tender, Non-Distended, No Hepato- splenomegaly Extremities: Edema - Trace edema of the right lower extremity, right foot dressed up and malika-wrapped. Skin: No rashes, No breakdown Musculoskeletal: No Tenderness to Palpation of Joints or Extremities Neurological: Cranial nerves II-XII grossly intact Psych/Mental Status: Normal Affect, Appropriate Microbiology Past 72 Hours 01/01/18 15:20 Wound Drainage - Aerobic Swab Gram Stain - Final 01/01/18 15:20 Wound Drainage - Aerobic Swab Wound Culture - Preliminary Staphylococcus aureus Laboratory Results 01/01/18 15:20: S.aureus Protein A PCR POSITIVE H, MRSA (PCR) Negative 01/01/18 16:34: Vitamin B12 556 01/02/18 05:15: WBC 10.8, RBC 4.32 L, Hgb 11.7 L, Hct 36.7 L, MCV 85.0, MCH 27.1 , MCHC 31.9 L, RDW 15.6 H, RDW Differential 48.4 H, Plt Count 315, MPV 10.6, Immature Gran % (Auto) 0.300, Neut % (Auto) 61.0, Lymph % (Auto) 21.8, [place] % ( Auto) 11.2 H, Eos % (Auto) 5.4 H, Baso % (Auto) 0.3, Absolute Neuts (auto) 6.6, Absolute Lymphs (auto) 2.36, Total Counted Not Reportable 01/02/18 05:15: Sodium 141, Potassium 4.2, Chloride 106, Carbon Dioxide 27.0, Anion Gap 8, BUN 13, Creatinine 1.12, Estim Creat Clear Calc 104.89, Est GFR ( MDRD) Af Amer 98, Est GFR (MDRD) Non-Af 81, BUN/Creatinine Ratio 11.6, Glucose 95, Calcium 8.6 Current Medications Acetaminophen (Tylenol) 650 mg PO Q6H PRN PRN PRN Reason: Mild Pain (scale 0-3)/T>100.7 Levofloxacin 500 mg/ N/A 100 mls @ 100 mls/hr IV Q24 [facility] Last Admin: 01/02/18 09:39 Dose: 100 mls/hr Cefazolin Sodium 2 gm/ Sodium (Chloride) 110 mls @ 150 mls/hr IV Q8 [facility] Last Admin: 01/02/18 14:27 Dose: 150 mls/hr Metronidazole (Flagyl) 500 mg PO TID [facility] Morphine Sulfate () 1 - 2 mg IV Q4H PRN PRN PRN Reason: SEVERE PAIN (6-10/10) Last Admin: 01/02/18 14:28 Dose: 2 mg Ondansetron HCl (Zofran) 4 mg IV Q8H PRN PRN PRN Reason: Nausea Oxycodone HCl (Oxyir) 5 mg PO Q4H PRN PRN PRN Reason: Moderate Pain (pain scale 4-5) Last Admin: 01/02/18 02:33 Dose: 5 mg Sodium Chloride () 5 - 30 ml IV UD PRN PRN Reason: SALINE FLUSH Last Admin: 01/02/18 07:14 Dose: 10 ml Medical Necessity - Tobacco Use Smoking Status: Former smoker Tobacco Use: Cigarettes Assessment/Plan All Active Problems Osteomyelitis (Acute) 32-year-old male, resident in [place], working in [place] at the moment, history of peripheral neuropathy secondary to traumatic back injury/herniated disc who comes in with complaints of infected painful right foot. 1. Right proximal and distal great toe phalanges osteomyelitis, cultures growing MSSA, MRSA PCR is negative ID podiatry consulted, On IV cefazolin, Levaquin and p.o. Flagyl 2. Right foot myositis with possible abscess, in the region of the ulcer, going for wound debridement and I & D tomorrow, On antibiotics 3. Peripheral neuropathy 4. DVT prophylaxis with early ambulation Code Visit Inpatient E&M: 25853 Subs Hosp L2
--- NOTE | 2018-01-02 16:35 | NURSING ---
call placed to ac and report given to RN who will be taken over care of pt
--- NOTE | 2018-01-02 16:48 | CHAPLAIN ---
Type of Pastoral Visit _x__ Initial Visit ___ Follow-up Visit ___ On-call Visit ___ General Patient Visit ___ Spiritual Assessment ___ Family Conference ___ Bereavement ___ Rapid Response ___ Code Blue ___ Other (describe below) Pastoral Care Referral From _x__ Patient ___ Family ___ Nurse ___ Physician ___ Freight Flow Sales Leader ___ Dump Truck Driver Off Highway ___ Other (describe below) Sacrament/Intervention _x__ Active listening ___ Anointing ___ Gnosticism ___ Bereavement ___ Communion _x__ Elis exploration ___ _x__ Life review _x__ Prayer ___ Reconciliation ___ Sacrament of Sick _x__ Supportive presence ___ Wedding ___ Other (describe below) Pastoral Comments patient is out of state on a work assignment; no family available; pt is headed to surgery soon; pt requested prayer and visit
[2018-01-02] MEDS: Bupivacaine Mpf 0.5% 30 ML VIAL (19:41)
--- NOTE | 2018-01-02 19:50 | PCM.OPRPT ---
Report of Operation Date of Procedure: 01/02/18 Pre-Operative Diagnosis: Osteomyelitis 1st Toe, right foot. 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 Deep culture plantar medial arch right foot. 2. Bone from right 1st metatarsal as clearance fragment sent to microbiology and pathology. 3. Amputated right hallux sent to microbiology and pathology. 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 He has developed ulceration to the plantar right hallux which is necrotic and osteomyelitis is present as seen on xray and MRI imaging. There is significant cellulitis, to the right foot, and myositis to the plantar medial arch of the foot. He has significant pain and hypersensitivity along with significant edema and induration to the plantar arch of the foot consistent with infection. Patient is from [place], [place], here for work, planning to leave on Sunday. Discussed the options with the patient, due to the findings of significant infection, patient was brought to the operating room for incision and drainage, along with debridement and hallux amputation of the right foot. This was discussed with him in detail, reviewed the rationale of this with him, along with the possible benefits vs risks, goals, expectations and alternative options. Patient was advised the risks include but are not limited to pain, worsening, recurrence, need for further surgery, complex regional pain syndrome, numbness, swelling, weakness, transfer lesions, deformity, loss of limb, loss of life. He agreed and able to repeat back. The consent form was reviewed with patient and he freely signed it. No guarantees were given nor implied. Operative procedure: The patient was brought back to the operating room and was placed on the operating room int he supine position. He was already on IV antibiotics. A well padded pneumatic tourniquet was applied around the right ankle. A timeout was performed and the patient was proper identified and surgical plan was confirmed. The patient received general anesthesia per the anesthesia team. The right foot was scrubbed, prepped, draped in the usual aseptic fashion. Further attention was directed to the right foot. There was noted to be necrotic ulceration plantar right hallux sub interphalangeal joint probing deep to the flexor tendon and close to bone. There was maloder from the ulceration, there was significant cellulitis to the foot with drainage consistent with infection, there was significant edema, induration and cellulitis to the plantar arch of the foot as well; it was very tense. The right foot was elevated for 3 minutes and the right ankle pneumatic tourniquet was inflated to 250mmHg. Using a 15 scalpel blade, a longitudinal incision was made the plantar medial arch of the foot, there was immediate drainage from the site consistent with infection. Careful blunt dissection was completed down to the flexor hallucis muscle and flexor hallucis tendon, there was further drainage consistent with infection. The tissues were decompressed and allowed to drain. At this time an incision was made around the base of the hallux creating a flap. This was made using a 15 scalpel blade. The bone of the hallux proximal and distal phalanges were noted to be soft, yellow, nonviable and infected. The hallux was resected at the level of the 1st metatarsal phalangeal joint. There was noted to be purulence within the 1st metatarsal phalangeal joint as well which was drained. The sesamoids were removed as well as it appeared the infection was spreading to this level as well. The resected hallux and sesamoids were sent to pathology, with a piece of bone from the resected hallux sent to microbiology for culture. There was chronic abscess noted to the soft tissues at level of the 1st metatarsal phalangeal joint which were debrided out down to healthy viable normal tissue using a 15 scalpel blade. The sites were flushed out with copious amounts of normal saline solution. A bone culture / clearance fragment biopsy was completed to the 1st metatarsal head - sent to microbiology and pathology. The 1st metatarsal bone at this level did appear healthy, viable, white, had intact healthy cartilage, and appeared free of infection. At this time all remaining tissue appeared healthy, viable and free of infection with tissue planes intact. The sites were flushed out with copious amounts of normal saline solution. The skin at level of the hallux resection site were loosely reapproximated using 3-0 Nylon, this site was packed with 1/2 inch Iodoform packing. The plantar incision and drainage site was left open to drain and was packed with 1/2inch Iodoform packing. A total of 20mL of 0.5% Bupivacaine was given as a local nerve block around the right foot surgical site to aid with post procedure pain control. The pneumatic tourniquet was deflated and there was immediate return of warmth and perfusion to the foot, CFT< 2 seconds to all toes and pedal pulses intact. Total tourniquet time was 61 minutes. A dressing was applied which consisted of Betadine soaked adaptic, 4x4 gauze, Kerlix and an malika bandage. The patient tolerated the above procedure well and anesthesia well with no complications. He was transported from the operating room to the recovery room with vital signs stable and in good condition. Post operative orders were placed. Post operating instructions were reviewed - no weightbearing right foot, and keep right foot elevated. Will continue to follow up as inpatient. Grafts/Implants Used: None - Complications None
--- NOTE | 2018-01-02 19:53 | OP.PCM_ITS ---
Report of Operation Date of Procedure: 01/02/18 Pre-Operative Diagnosis: Osteomyelitis 1st Toe, right foot. 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 Deep culture plantar medial arch right foot. 2. Bone from right 1st metatarsal as clearance fragment sent to microbiology and pathology. 3. Amputated right hallux sent to microbiology and pathology. 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 He has developed ulceration to the plantar right hallux which is necrotic and osteomyelitis is present as seen on xray and MRI imaging. There is significant cellulitis, to the right foot, and myositis to the plantar medial arch of the foot. He has significant pain and hypersensitivity along with significant edema and induration to the plantar arch of the foot consistent with infection. Patient is from [place], [place], here for work, planning to leave on Sunday. Discussed the options with the patient, due to the findings of significant infection, patient was brought to the operating room for incision and drainage, along with debridement and hallux amputation of the right foot. This was discussed with him in detail, reviewed the rationale of this with him, along with the possible benefits vs risks, goals , expectations and alternative options. Patient was advised the risks include but are not limited to pain, worsening, recurrence, need for further surgery, complex regional pain syndrome, numbness, swelling, weakness, transfer lesions, deformity, loss of limb, loss of life. He agreed and able to repeat back. The consent form was reviewed with patient and he freely signed it. No guarantees were given nor implied. Operative procedure: The patient was brought back to the operating room and was placed on the operating room int he supine position. He was already on IV antibiotics. A well padded pneumatic tourniquet was applied around the right ankle. A timeout was performed and the patient was proper identified and surgical plan was confirmed. The patient received general anesthesia per the anesthesia team. The right foot was scrubbed, prepped, draped in the usual aseptic fashion. Further attention was directed to the right foot. There was noted to be necrotic ulceration plantar right hallux sub interphalangeal joint probing deep to the flexor tendon and close to bone. There was maloder from the ulceration, there was significant cellulitis to the foot with drainage consistent with infection, there was significant edema, induration and cellulitis to the plantar arch of the foot as well; it was very tense. The right foot was elevated for 3 minutes and the right ankle pneumatic tourniquet was inflated to 250mmHg. Using a 15 scalpel blade, a longitudinal incision was made the plantar medial arch of the foot, there was immediate drainage from the site consistent with infection. Careful blunt dissection was completed down to the flexor hallucis muscle and flexor hallucis tendon, there was further drainage consistent with infection. The tissues were decompressed and allowed to drain. At this time an incision was made around the base of the hallux creating a flap. This was made using a 15 scalpel blade. The bone of the hallux proximal and distal phalanges were noted to be soft, yellow, nonviable and infected. The hallux was resected at the level of the 1st metatarsal phalangeal joint. There was noted to be purulence within the 1st metatarsal phalangeal joint as well which was drained. The sesamoids were removed as well as it appeared the infection was spreading to this level as well. The resected hallux and sesamoids were sent to pathology, with a piece of bone from the resected hallux sent to microbiology for culture. There was chronic abscess noted to the soft tissues at level of the 1st metatarsal phalangeal joint which were debrided out down to healthy viable normal tissue using a 15 scalpel blade. The sites were flushed out with copious amounts of normal saline solution. A bone culture / clearance fragment biopsy was completed to the 1st metatarsal head - sent to microbiology and pathology. The 1st metatarsal bone at this level did appear healthy, viable, white, had intact healthy cartilage, and appeared free of infection. At this time all remaining tissue appeared healthy, viable and free of infection with tissue planes intact. The sites were flushed out with copious amounts of normal saline solution. The skin at level of the hallux resection site were loosely reapproximated using 3-0 Nylon, this site was packed with 1/2 inch Iodoform packing. The plantar incision and drainage site was left open to drain and was packed with 1/2inch Iodoform packing. A total of 20mL of 0.5% Bupivacaine was given as a local nerve block around the right foot surgical site to aid with post procedure pain control. The pneumatic tourniquet was deflated and there was immediate return of warmth and perfusion to the foot, CFT < 2 seconds to all toes and pedal pulses intact. Total tourniquet time was 61 minutes. A dressing was applied which consisted of Betadine soaked adaptic, 4x4 gauze, Kerlix and an malika bandage. The patient tolerated the above procedure well and anesthesia well with no complications. He was transported from the operating room to the recovery room with vital signs stable and in good condition. Post operative orders were placed. Post operating instructions were reviewed - no weightbearing right foot , and keep right foot elevated. Will continue to follow up as inpatient. Grafts/Implants Used: None - Complications None
--- NOTE | 2018-01-02 20:20 | RAD_ITS ---
STUDY: X-RAY - RIGHT FOOT CLINICAL: Male, 32 years old. Postop right foot. TECHNIQUE: 3 view(s) of the foot. COMPARISON: Right foot, January 01, 2018. FINDINGS: There is been interval amputation of the first digit at the level of the metatarsophalangeal joint. Air is seen in the overlying soft tissues. There is no other major interval change when compared to the previous examination. RAD/Foot min 3 Views IMPRESSION: Amputation of the first digit with diffuse soft tissue swelling about the medial forefoot. Electronically Signed: Herman Rubio DO at 21:18 EDT Tel [phone], Service support ,
[2018-01-02] MEDS: metroNIDAZOLE 500 MG Tablet PO (21:46)
[2018-01-02] MEDS: Acetaminophen 325 MG Tablet 650 MG PO (22:58)
--- NOTE | 2018-01-03 | BON_PTH ---
PATIENT: FERNIE JOHNSTON LOC: MS2 U#:[id number] AGE/SX: 32/M ROOM: [facility] [place] RE01/01/[address]: Dr. Belkis Pierson MD : 1985 BED: 1 DIS: 01/04/2018 SPEC #: [id number] RECD: 01/03/18 12:23 STATUS: JAVY REQ #: [id number] ANDRE: 01/03/18 00:[address]: Rito Peña DEPT: SURGICAL PATHOLOGY RECD BY: Alvaro Nance ENTERED: 01/03/18 12:24 SP TYPE: Bone OTHR DR: MD Dr. Rito Barney, DPM MD Dr. Hussein Valdez MD Out of [facility] Doctor Tissues: A - Bone of foot, NOS B - Toe, NOS Procedures: Decalcification bone/plaque Special Stain Group I Surgery Specimen Level III Surgery Specimen Level IV AFB Stain (control) GMS Stain (control) Comments: @ Ordering doctor for DEC edited from to @ by DANIEL at 01/03/18 1504 @ Ordering doctor for SUIII edited from to @ by DANIEL at 01/03/18 1504 @ Ordering doctor for SUIV edited from to @ by DANIEL at 01/03/18 1504 @ Submitting doctor edited from to DR.JWUNNI Fallon by RGOOD at 01/03/18 1504 HEADER OPERATION: I & D foot, hallux amputation PRE-OP DIAGNOSIS: Right foot osteomyelitis TISSUE SUBMITTED: A - Clearance fragment right first metatarsal bone, B - Right great toe MICROSCOPIC DIAGNOSIS A. Clearance fragment right first metatarsal bone: A piece of bone, negative for acute osteomyelitis. B. Right great toe, amputation: Pieces of skin and underlying tissue and detached pieces of soft tissue with focal ulceration, acute and chronic inflammation, granulation tissue reaction and abscess formation. Bone with chronic inflammation and reactive changes, negative for acute osteomyelitis. Special stains for acid fast bacilli and fungi are negative for organisms; matched controls are appropriate. SJ:wilfredo 01/09/18 MICROSCOPIC DESCRIPTION Slides are reviewed. GROSS DESCRIPTION A - Received in fixative is one container labeled with the patient's name and designated clearance fragment right first metatarsal bone. The specimen consists of a piece of bone measuring 0.5 cm in length and up to 0.3 cm in diameter. The entire specimen is submitted in one cassette after decalcification. B - Received in fixative is one container labeled with the patient's name and designated right great toe. The specimen consists of a portion of toe measuring 6.5 x 3.5 x 3 cm. A focal area of ulceration is noted on the plantar surface of the toe measuring 2 cm in greatest dimension. This ulcerated area is 0.2 cm away from the cutaneous resection margin. A focal area of ulceration is also noted at the tip of the toe. The nail appears atrophic. A focal area of hemorrhage is also noted. Also present in the container are detached pieces of soft tissue and skin measuring in aggregate 5 x 4 x 2 cm. Health Lead sections are submitted in four cassettes as follows: 1 - ulcerated area on the toe, 2 - detached pieces of soft tissue and skin, 3 & 4 - bone after decalcification. / SJ:rg 01/03/18 TC:2 CPT: 12662, 43055, 28544 x2, 16764 x2
[2018-01-03 00:44] VITALS: BP 126/73; PULSE 95; RESP 16; TEMP 37.6; O2SAT 97
[2018-01-03] MEDS: Morphine 2 MG/ML Syringe IV ×5 (01:54→21:15)
[2018-01-03] MEDS: metroNIDAZOLE 500 MG Tablet PO (05:45)
[2018-01-03] MEDS: Cefazolin 2 GM in 0.9% Normal Saline 100 ML IV (05:46)
[2018-01-03 05:48] VITALS: BP 118/69; PULSE 77; RESP 16; TEMP 36.9; O2SAT 99
[2018-01-03 08:45] VITALS: BP 107/64; PULSE 87; RESP 18; TEMP 37.2; O2SAT 97
[2018-01-03] MEDS: Acetaminophen 325 MG Tablet 650 MG PO (08:50)
[2018-01-03] MEDS: oxyCODONE 5 MG Tablet PO ×2 (08:50→14:11)
--- NOTE | 2018-01-03 09:17 | PN_ITS ---
Patient Problems: Active and Suspected Problems Osteomyelitis (Acute) Subjective: He was seen and examined. No acute events overnight. Denies any pain. Vitals/I&O's: Vital Signs Temp Pulse Resp BP Pulse Ox 98.9 F 87 18 107/64 97 01/03/18 08:45 01/03/18 08:45 01/03/18 08:45 01/03/18 08:45 01/03/18 08:45 Oxygen Delivery Method Room Air Weight: 103.6 kg Body Mass Index (BMI) 30.9 Intake and Output for Last 24 Hours 01/01/18 01/02/18 01/03/18 23:59 23:59 23:59 Intake Total 3063 / 3063 492 / 492 Balance 3063 / 3063 492 / 492 General: Alert, Oriented x3, Cooperative HEENT: Atraumatic, PERRLA, EOMI, Normocephalic Neck: Supple, No JVD, Negative Carotid Bruits Lungs: Clear to auscultation, Normal air movement Cardiovascular: Regular rate, No murmurs Abdomen: Bowel Sounds Present, Soft, Non Tender, Non-Distended Extremities: Edema - Trace of the right lower extremity, dressing postsurgical in place with Abner wraps also Skin: No rashes, No breakdown Musculoskeletal: No Tenderness to Palpation of Joints or Extremities Lymphatic: No Cervical, Supraclavicular, or Inguinal Adenopathy Neurological: Cranial nerves II-XII grossly intact Psych/Mental Status: Normal Affect, Appropriate Microbiology Past 72 Hours 01/01/18 15:20 Wound Drainage - Aerobic Swab Gram Stain - Final 01/01/18 15:20 Wound Drainage - Aerobic Swab Wound Culture - Preliminary Staphylococcus aureus Current Medications Acetaminophen (Tylenol) 650 mg PO Q6H PRN PRN PRN Reason: Mild Pain (scale 0-3)/T>100.7 Last Admin: 01/03/18 08:50 Dose: 650 mg Levofloxacin 500 mg/ N/A 100 mls @ 100 mls/hr IV Q24 [facility] Last Admin: 01/02/18 09:39 Dose: 100 mls/hr Cefazolin Sodium 2 gm/ Sodium (Chloride) 110 mls @ 150 mls/hr IV Q8 [facility] Last Admin: 01/03/18 05:46 Dose: 150 mls/hr Metronidazole (Flagyl) 500 mg PO TID [facility] Last Admin: 01/03/18 05:45 Dose: 500 mg Morphine Sulfate () 1 - 2 mg IV Q4H PRN PRN PRN Reason: SEVERE PAIN (6-10/10) Last Admin: 01/03/18 05:54 Dose: 2 mg Ondansetron HCl (Zofran) 4 mg IV Q8H PRN PRN PRN Reason: Nausea Oxycodone HCl (Oxyir) 5 mg PO Q4H PRN PRN PRN Reason: Moderate Pain (pain scale 4-5) Last Admin: 01/03/18 08:50 Dose: 5 mg Sodium Chloride () 5 - 30 ml IV UD PRN PRN Reason: SALINE FLUSH Last Admin: 01/02/18 21:46 Dose: 10 ml Medical Necessity - Tobacco Use Smoking Status: Former smoker Tobacco Use: Cigarettes Assessment/Plan All Active Problems Osteomyelitis (Acute) 32-year-old male, resident in [place], working in [employer] at the moment, history of peripheral neuropathy secondary to traumatic back injury/herniated disc who comes in with complaints of infected painful right foot. 1. Right proximal and distal great toe phalanges osteomyelitis, status post amputation of the right hallux, s/p I&D Wound cultures growing MSSA, possible enterococcus, MRSA PCR is negative ID and podiatry consulted, on IV unasyn now 2. Right foot myositis with possible abscess, s/p wound debridement and I & D on 01/02/18, will continue with antibiotics 3. Peripheral neuropathy 4. DVT prophylaxis with early ambulation Code Visit Inpatient E&M: 78767 Subs Hosp L2
--- NOTE | 2018-01-03 11:11 | PCM.PN.ID ---
Patient Problems: Active and Suspected Problems Osteomyelitis (Acute) Subjective: Foot throbbing s/p OR last night. No fever, no n/v/d. - Physical Exam General: Alert, Cooperative, No apparent distress Lungs: Clear to auscultation, Normal air movement Cardiovascular: Regular rate, Regular Rhythm Abdomen: Soft, Non Tender, Non-Distended Skin: Incision - Foot wrapped Vital Signs Temp Pulse Resp BP Pulse Ox 98.9 F 87 18 107/64 97 01/03/18 08:45 01/03/18 08:45 01/03/18 08:45 01/03/18 08:45 01/03/18 08:45 Oxygen Delivery Method Room Air Weight: 103.6 kg Body Mass Index (BMI) 30.9 Intake and Output for Last 24 Hours 01/01/18 01/02/18 01/03/18 23:59 23:59 23:59 Intake Total 3063 / 3063 492 / 492 Balance 3063 / 3063 492 / 492 Microbiology Past 72 Hours 01/01/18 15:20 Gram Stain - Final Wound Drainage - Aerobic Swab Wound Culture - Preliminary Staphylococcus aureus GPC Poss Enterococcus sp Medical Necessity - Tobacco Use Smoking Status: Former smoker Tobacco Use: Cigarettes Route of nutrition/ use of supplements: [] Nutritional Intake: [] IV Site: [] Fuller Catheter: [] - Assessment/Plan Antibiotics: [] Assessment/Plan: [] R 1st toe MSSA osteo - Podiatry following. Reports rash with PCN but has tolerated amoxicillin with no issue. On levaquin, cefazolin and po flagyl. MRSA neg. Amputation done 01/02. Surg cx with mssa and possible enterococcus. Will change abx to unasyn based on cx results. If margins were clear, plan on home with po abx. Will follow
--- NOTE | 2018-01-03 13:38 | PCM.PROGNOTE ---
Patient Problems: Active and Suspected Problems Osteomyelitis (Acute) Subjective: Patient was seen today for follow up on right foot. He relates foot is sore, no complaints of fever, chills, nausea, vomiting or any other complaints. 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 - Physical Exam General: Alert, Oriented x3, Cooperative, No apparent distress Extremities: Capillary Refill Less than 3 Seconds, No Calf Tenderness, Peripheral Pulses Normal, - - Right foot: s/p hallux amputation and I+D to the plantar medial arch of the foot - there is receeding cellulitis w/ improvement noted, there is no maloder, no fluctuance, no crepitus, no visible abscess noted, no streaking noted, no blistering or necrosis noted. No purulence noted. Sutures intact at the hallux amputation site, there is minimal pain to the hallux amputation site c/w his neuropathy, however he does have pain to the plantar arch of the right foot. No evidence of ischemia to the right foot. Vital Signs Temp Pulse Resp BP Pulse Ox 98.9 F 87 18 107/64 97 01/03/18 08:45 01/03/18 08:45 01/03/18 08:45 01/03/18 08:45 01/03/18 08:45 Oxygen Delivery Method Room Air Weight: 103.6 kg Body Mass Index (BMI) 30.9 Intake and Output for Last 24 Hours 01/01/18 01/02/18 01/03/18 23:59 23:59 23:59 Intake Total 3063 / 3063 1195 / 1195 Balance 3063 / 3063 1195 / 1195 Microbiology Past 72 Hours 01/02/18 20:12 Gram Stain - Final Incision/Surgical Site 01/02/18 20:12 Gram Stain - Final Bone - Right Foot 01/02/18 20:12 Gram Stain - Final Wound - Aerobic & Anaerobic Swabs 01/01/18 15:20 Gram Stain - Final Wound Drainage - Aerobic Swab Wound Culture - Preliminary Staphylococcus aureus GPC Poss Enterococcus sp Medical Necessity - Tobacco Use Smoking Status: Former smoker Tobacco Use: Cigarettes Assessment/Plan All Active Problems Osteomyelitis (Acute) s/p right hallux amputation, I+D right foot due to osteomyelitis and deep infection right foot Peripheral neuropathy bilateral lower extremity secondary to back injury while in Re-evaluation completed today, noted less cellulitis to the foot, there has been clinical improvement. Patient is on antibiotic therapy at this time per Infectious Disease service. Incision site at hallux amputation site was painted with betadine solution, and wet to dry dressing applied to incision site plantar arch right foot, overlying gauze, kerlix and malika dressing applied. No weightbearing on right forefoot. Keep foot elevated. Reviewed further care with patient, he is planning to leave on Sunday to go home to [place], he otherwise will be stuck here, his mother will have hard time to come to get him due to her overall health status. I have coordinated with the wound center at [facility] where he is from, and he has appt there on Sunday01/08/18 at 9AM. We are trying to get home health to come out to his home until that time once he is home, otherwise advised patient to go to the ER at [facility] on Sunday for a foot check and to get home health set up at that time. I will recheck patient's foot tomorrow AM. This was discussed with patient.
--- NOTE | 2018-01-03 13:58 | NURSING ---
wound photo: right plantar/medial foot
--- NOTE | 2018-01-03 13:59 | NURSING ---
wound photo: right foot s/p right hallux amputation
[2018-01-03 14:07] VITALS: BP 124/76; PULSE 84; RESP 18; TEMP 37.4; O2SAT 97
--- NOTE | 2018-01-03 14:15 | CASEMGMT ---
MENDOZA CHOI NOTE: Dr Peña requesting [facility] to be arranged in [place] for when pt returns tomorrow. RN STEPH spoke with pt. Pt is agreeable to [facility] and thinks who he used last year was [facility] in [place], [place]. He states he was pleased with care he received from them and agreeable to having them see him again. RN STEPH spoke w/[facility] and they stated are unable to take pt d/t staffing issues. Pt states does not have preference of another agency. Call placed to, Analy, @ [facility] in [place], [place] who stated they have the staffing to accommodate pt for FDC/Wound Care. Analy is aware Start of Care preferred for 01/04/18 when pt returns to [place] and if not able to start care 01/04/18, then start of care needs to be by 01/05/18. Referral packet faxed. [facility]: P: [phone] F: [phone] CM to follow for any further discharge planning needs that may arise. Chris JARA RN CM
--- NOTE | 2018-01-03 15:25 | CHAPLAIN ---
Type of Pastoral Visit ___ Initial Visit _x__ Follow-up Visit ___ On-call Visit ___ General Patient Visit ___ Spiritual Assessment ___ Family Conference ___ Bereavement ___ Rapid Response ___ Code Blue ___ Other (describe below) Pastoral Care Referral From _x__ Patient ___ Family ___ Nurse ___ Physician ___ Patient Services Coordinator ___ Electrical Solderer ___ Other (describe below) Sacrament/Intervention _x__ Active listening ___ Anointing ___ Jew ___ Bereavement ___ Communion ___ Elis exploration ___ ___ Life review _x__ Prayer ___ Reconciliation ___ Sacrament of Sick ___ Supportive presence ___ Wedding ___ Other (describe below) Pastoral Comments post surgery follow up
--- NOTE | 2018-01-03 16:49 | CASEMGMT ---
MENDOZA CHOI note: Received call from Analy @ [facility] in [place], [place]. Analy states pt still has a deductible not met yet and that he would need to pay a $500 co-pay for HHC. MENDOAZ CHOI spoke w/pt and informed him of same and he is agreeable to pay this and wishes to continue with HHC services. Call placed to Analy, informed her of this, and she states pt is approved and start of care is 01-05-18. Analy asked for pt to be made aware that if would have any problems/concerns upon returning to [place] tomorrow that he may contact them earlier than 01-05-18 so they can assist him. Pt informed of this and given [facility] phone number. Face to Face Documentation Form, signed HHC orders from Dr Pierson, and updated progress note from Dr Peña all faxed to [facility] @ [phone]. Fax confirmation received. CM to follow for any further discharge planning needs that may arise. Chris JARA RN, CM
[2018-01-03 20:10] VITALS: BP 138/88; PULSE 96; RESP 16; TEMP 37.8; O2SAT 100
[2018-01-03] MEDS: Ondansetron 4 MG/2 ML Vial IV (21:15)
[2018-01-03 22:00] VITALS: PULSE 96
[2018-01-04] MEDS: Morphine 2 MG/ML Syringe IV ×2 (01:46→06:48)
[2018-01-04] MEDS: Acetaminophen 325 MG Tablet 650 MG PO (01:47)
[2018-01-04 01:51] VITALS: BP 107/55; PULSE 82; RESP 16; TEMP 37.2; O2SAT 98
[2018-01-04] MEDS: oxyCODONE 5 MG Tablet PO ×2 (05:39→09:37)
--- NOTE | 2018-01-04 07:04 | PCM.PROGNOTE ---
Patient Problems: Active and Suspected Problems Osteomyelitis (Acute) Subjective: Patient was seen this morning for follow up on right foot. He relates foot is feeling better. He relates it is still sore through. He denies feeling feverish, no chills, nausea or vomiting. No new complaints. He did have temp of 100F late yesterday evening. 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 - Physical Exam General: Alert, Oriented x3, Cooperative, No apparent distress Extremities: Capillary Refill Less than 3 Seconds, No Calf Tenderness, Peripheral Pulses Normal, - - Right foot: s/p hallux amputation and I+D to the plantar medial arch of the foot - there is continued improvement noted to the foot, less cellulitis which continues to fade away and receed, there is no maloder, no fluctuance, no crepitus, no visible abscess noted, no streaking noted, no blistering or necrosis noted. No purulence noted. Sutures intact at the hallux amputation site, there is minimal pain to the hallux amputation site c/w his neuropathy, however he does have continued tenderness to the plantar arch of the right foot - tissues do appear healthy and viable at the I+D site, and hallux amputation site. No evidence of ischemia to the right foot. Vital Signs Temp Pulse Resp BP Pulse Ox 99.0 F 82 16 107/55 L 98 01/04/18 01:51 01/04/18 01:51 01/04/18 01:51 01/04/18 01:51 01/04/18 01:51 Oxygen Delivery Method Room Air Weight: 103.6 kg Body Mass Index (BMI) 30.9 Intake and Output for Last 24 Hours 01/02/18 01/03/18 01/04/18 23:59 23:59 23:59 Intake Total 3063 / 3063 1332 / 1332 180 / 180 Balance 3063 / 3063 1332 / 1332 180 / 180 Microbiology Past 72 Hours 01/02/18 20:12 Gram Stain - Final Incision/Surgical Site 01/02/18 20:12 Gram Stain - Final Bone - Right Foot 01/02/18 20:12 Gram Stain - Final Wound - Aerobic & Anaerobic Swabs 01/01/18 15:20 Gram Stain - Final Wound Drainage - Aerobic Swab Wound Culture - Preliminary Staphylococcus aureus GPC Poss Enterococcus sp Medical Necessity - Tobacco Use Smoking Status: Former smoker Tobacco Use: Cigarettes Assessment/Plan All Active Problems Osteomyelitis (Acute) s/p right hallux amputation, I+D right foot due to osteomyelitis and deep infection right foot Peripheral neuropathy bilateral lower extremity secondary to back injury while in Re-evaluation completed today, continued improvement noted clinically, less cellulitis to the foot and less edema. Patient continues with antibiotic therapy per Infectious Disease service. Wound Care: Incision site at hallux amputation site painted with Betadine solution, and wet to dry dressing applied to incision site plantar arch right foot, overlying gauze, kerlix and malika dressing applied. No weightbearing on right forefoot. Keep foot elevated. Reviewed further care with patient, he is planning to leave today to go home to [place]. Home health has been coordinated to come out to his home daily to check foot and do dressing changes. He also has appointment scheduled with the wound center at [facility] where he is from for Sunday01/08/18 at 9AM. Advised patient to go to the ER at [facility] or nearest ER if any problems. This was discussed with patient, he agreed with plan, all of his questions were answered.
[2018-01-04 07:20] VITALS: BP 130/79; PULSE 82; RESP 18; TEMP 36.9; O2SAT 97
--- NOTE | 2018-01-04 07:23 | NURSING ---
Records were sent to the [facility] in [place] per Dr Peña's request at . Pt has home health arranged and they will start care on 01/05/18. pt has an appt at the [facility] on Sunday01/08/18 at 9am. dressing changed this am with Dr Peña. pt is still quite tender on the forefoot. there is less redness and edema noted again today. no purulent drainage noted.
[2018-01-04] MEDS: 0.9% NaCl Peripheral Flush Adult/Peds IV (07:26)
[2018-01-04 07:28] VITALS: PULSE 80
--- NOTE | 2018-01-04 07:29 | PN_ITS ---
Subjective: Patient was seen and examined. He will be discharged today. Denies any new complaints. Objective: General: Alert, Oriented x3, Cooperative HEENT: Atraumatic, PERRLA, EOMI, Normocephalic Neck: Supple, No JVD, Negative Carotid Bruits Lungs: Clear to auscultation, Normal air movement Cardiovascular: Regular rate, No murmurs Abdomen: Bowel Sounds Present, Soft, Non Tender, Non-Distended Extremities: Edema - Trace of the right lower extremity, dressing postsurgical in place with Abner wraps also Skin: No rashes, No breakdown Musculoskeletal: No Tenderness to Palpation of Joints or Extremities Lymphatic: No Cervical, Supraclavicular, or Inguinal Adenopathy Neurological: Cranial nerves II-XII grossly intact Psych/Mental Status: Normal Affect, Appropriate Vitals/I&O's: Vital Signs Temp Pulse Resp BP Pulse Ox 98.5 F 82 18 130/79 H 97 01/04/18 07:20 01/04/18 07:20 01/04/18 07:20 01/04/18 07:20 01/04/18 07:20 Oxygen Delivery Method Room Air Weight: 103.6 kg Body Mass Index (BMI) 30.9 Intake and Output for Last 24 Hours 01/02/18 01/03/18 01/04/18 23:59 23:59 23:59 Intake Total 3063 / 3063 1332 / 1332 180 / 180 Balance 3063 / 3063 1332 / 1332 180 / 180 Microbiology Past 72 Hours 01/02/18 20:12 Incision/Surgical Site Gram Stain - Final 01/02/18 20:12 Bone - Right Foot Gram Stain - Final 01/02/18 20:12 Wound - Aerobic & Anaerobic Swabs Gram Stain - Final 01/01/18 15:20 Wound Drainage - Aerobic Swab Gram Stain - Final 01/01/18 15:20 Wound Drainage - Aerobic Swab Wound Culture - Preliminary Staphylococcus aureus GPC Poss Enterococcus sp Current Medications Acetaminophen (Tylenol) 650 mg PO Q6H PRN PRN PRN Reason: Mild Pain (scale 0-3)/T>100.7 Last Admin: 01/04/18 01:47 Dose: 650 mg Ampicillin Sodium/Sulbactam (Sodium 3 gm/ Sodium Chloride) 112 mls @ 150 mls/ hr IV Q8 DAREK Last Admin: 01/04/18 05:39 Dose: 150 mls/hr Morphine Sulfate () 1 - 2 mg IV Q4H PRN PRN PRN Reason: SEVERE PAIN (6-10/10) Last Admin: 01/04/18 06:48 Dose: 2 mg Ondansetron HCl (Zofran) 4 mg IV Q8H PRN PRN PRN Reason: Nausea Last Admin: 01/03/18 21:15 Dose: 4 mg Oxycodone HCl (Oxyir) 5 mg PO Q4H PRN PRN PRN Reason: Moderate Pain (pain scale 4-5) Last Admin: 01/04/18 05:39 Dose: 5 mg Sodium Chloride () 5 - 30 ml IV UD PRN PRN Reason: SALINE FLUSH Last Admin: 01/04/18 07:26 Dose: 10 ml Medical Necessity - Tobacco Use Smoking Status: Former smoker Tobacco Use: Cigarettes Assessment/Plan All Active Problems Osteomyelitis (Acute) 32-year-old male, resident in [place], working in [employer] at the moment, history of peripheral neuropathy secondary to traumatic back injury/herniated disc who comes in with complaints of infected painful right foot. 1. Right proximal and distal great toe phalanges osteomyelitis, status post amputation of the right hallux, s/p I&D Wound cultures growing MSSA, possible enterococcus, MRSA PCR is negative ID and podiatry consulted, on IV unasyn now 2. Right foot myositis with possible abscess, s/p wound debridement and I & D on 01/02/18, will continue with antibiotics 3. Peripheral neuropathy 4. DVT prophylaxis with early ambulation Code Visit Inpatient E&M: 03458 Subs Hosp L2
--- NOTE | 2018-01-04 09:14 | PCM.DC ---
- Discharge Diagnoses Current Active Problems: Current Active and Chronic Problems Osteomyelitis (Acute) Reason(s) for Visit for Discharge Instructions: Right foot infection You will use the following diet at home:: Regular Your food should be the consistency of: Regular Discharge Activity: Return to Normal Activity Call your doctor if your incision/area has: Continuous Slow Oozing, Sudden Increased Bleeding, Increased Pain/ Swelling, Increased Redness, Foul Smelling Discharge Call your doctor if you observe: Fever of 101 or Higher, Coldness, Increased Pain, Numbness or Tingling, Change in Color Additional Instructions: Follow-up on post-operative wound instructions: Wound care with Betadine solution, and wet to dry dressing applied to incision site plantar arch right foot, overlying gauze, kerlix and malika dressing applied. No weightbearing on right forefoot. Keep foot elevated. Follow-up with wound center as scheduled at [facility]; Sunday01/08/18 at 9AM. Complete your antibiotics. You will need to establish with a ropewalk rope maker. Home health has been coordinated to come out to your home daily to check foot and do dressing changes. Advised patient to go to the ER at [facility] or nearest ER if any problems. Allergies/Adverse Reactions: Allergies Penicillins Allergy (Verified 01/01/18 11:41) Rash Medications to take at Discharge Amox/Clavulanate Tablet [Augmentin Tablet] 875 mg PO Q12H #20 tab 01/04/18 The following prescriptions were given: Amox/Clavulanate Tablet [Augmentin Tablet] 875 mg PO Q12H #20 tab Primary Care Physician: NOT,DEFINED [NON-STAFF] - Please follow up with your Primary Care Physician in: within 2 weeks Test Results: Test results from this visit will be discussed in further detail at your follow-up appointment, if applicable. Proposed Discharge Date: 01/02/18
--- NOTE | 2018-01-04 09:19 | DCINST_ITS ---
- Discharge Diagnoses Current Active Problems: Current Active and Chronic Problems Osteomyelitis (Acute) Reason(s) for Visit for Discharge Instructions: Right foot infection You will use the following diet at home:: Regular Your food should be the consistency of: Regular Discharge Activity: Return to Normal Activity Call your doctor if your incision/area has: Continuous Slow Oozing, Sudden Increased Bleeding, Increased Pain/ Swelling, Increased Redness, Foul Smelling Discharge Call your doctor if you observe: Fever of 101 or Higher, Coldness, Increased Pain, Numbness or Tingling, Change in Color Additional Instructions: Follow-up on post-operative wound instructions: Wound care with Betadine solution, and wet to dry dressing applied to incision site plantar arch right foot, overlying gauze, kerlix and malika dressing applied. No weightbearing on right forefoot. Keep foot elevated. Follow-up with wound center as scheduled at [facility]; Sunday01/08/18 at 9AM. Complete your antibiotics. You will need to establish with a stator plate washer. Home health has been coordinated to come out to your home daily to check foot and do dressing changes. Advised patient to go to the ER at [facility] or nearest ER if any problems. Allergies/Adverse Reactions: Allergies Penicillins Allergy (Verified 01/01/18 11:41) Rash Medications to take at Discharge Amox/Clavulanate Tablet [Augmentin Tablet] 875 mg PO Q12H #20 tab 01/04/18 The following prescriptions were given: Amox/Clavulanate Tablet [Augmentin Tablet] 875 mg PO Q12H #20 tab Primary Care Physician: NOT,DEFINED [NON-STAFF] - Please follow up with your Primary Care Physician in: within 2 weeks Test Results: Test results from this visit will be discussed in further detail at your follow- up appointment, if applicable. Proposed Discharge Date: 01/02/18
--- NOTE | 2018-01-04 09:26 | DS.PCM_ITS ---
Discharge Date and Diagnosis Date of Admission: 01/01/18 Date of Discharge: 01/04/18 - Primary Discharge Diagnosis Active and Suspected Problems Osteomyelitis (Acute) Right foot myositis Abscess of the right foot - Secondary Discharge Diagnosis Peripheral neuropathy Hospital Course and Treatment Imaging Results: Clinical Impression(s) from Imaging Studies Foot X-Ray 01/01/18 11:50 IMPRESSION: Soft tissue ulceration seen along the plantar aspect of the interphalangeal joint of the great toe Soft tissue swelling. Electronically Signed: Aj Bajwa MD at 13:23 EDT Tel [phone], Service support , Lower Extremity MRI 01/02/18 07:30 IMPRESSION: Osteomyelitis of the proximal and distal phalanges of the great toe. Small effusion and dorsal subluxation of the interphalangeal joint of the great toe. Tear of the flexor hallucis longus tendon. Myositis of the flexor hallucis brevis muscles. Ulcer at the plantar aspect of the great toe and edema in the subcutis adipose space. Soft tissue fullness at the plantar aspect of the second webspace suggestive of a small intermetatarsal neuroma. Mild bone edema in the navicular, likely a stress phenomenon. Electronically Signed: Kirill Altamirano MD at 9:16 EDT Tel , Service support , Foot X-Ray 01/02/18 20:20 IMPRESSION: Amputation of the first digit with diffuse soft tissue swelling about the medial forefoot. Electronically Signed: Herman Rubio DO at 21:18 EDT Tel [phone], Service support , Consultations 01/01/18 14:05 Consult: Onc/Wound/campus aide Routine Comment: Operations: - - Status post amputation of the right hallux, I&D Summary of Care Provided: 32-year-old male, resident in [place], working in [place] at the moment, history of peripheral neuropathy secondary to traumatic back injury/herniated disc who comes in with complaints of infected painful right foot. 1. Right proximal and distal great toe phalanges osteomyelitis, status post amputation of the right hallux, s/p I&D on 01/02/18. Wound cultures growing MSSA, possible enterococcus, MRSA PCR is negative. ID and podiatry consulted, initially on IV Unasyn, discharged on Augmentin to complete 10 days. Home health coordinated for patient to home, will follow up with wound center in [facility] as set up by appointment. Need to establish with a junior programmer analyst. He is nonweightbearing with crutches. 2. Right foot myositis with possible abscess, s/p wound debridement and I & D on 01/02/18, on Augmentin. 3. Peripheral neuropathy secondary to traumatic back injury/herniated disc Discharge Diet: No Restrictions Discharge Activity: Return to Normal Activity Call your doctor if your incision/area has: Continuous Slow Oozing, Sudden Increased Bleeding, Increased Pain/ Swelling, Increased Redness, Foul Smelling Discharge Call your doctor if you observe: Fever of 101 or Higher, Coldness, Increased Pain, Numbness or Tingling, Change in Color Home Medications: Medications to take at Discharge Amox/Clavulanate Tablet [Augmentin Tablet] 875 mg PO Q12H #20 tab 01/04/18 Following Prescrptions Were Given to Patient: Amox/Clavulanate Tablet [Augmentin Tablet] 875 mg PO Q12H #20 tab Primary Care Physician: NOT,DEFINED [NON-STAFF] - Please follow up with your Primary Care Physician in: within 2 weeks Disposition: Home with Home Health Minutes spent on discharge:: 45 Patient Condition:: Stable Medical Necessity - Tobacco Use Smoking Status: Former smoker Tobacco Use: Cigarettes Meaningful Use Info Meaningful Use Diagnoses (Choose all that apply): None applicable Code Visit Inpatient E&M: 13520 Disch Hosp
--- NOTE | 2018-01-04 10:16 | CASEMGMT ---
RN CM Note. Plan is for dc today. DC instructions and DC Summary faxed to [facility]. [facility] nurse, Annette will get script for supplies to be sent with pt. Tariq BOWDENN RN ACM
== END 2018-01-04 11:40 | disposition home health service (06) | DRG 478 ==
LOC: ED 12:16 → MS2 13:37
PROVIDERS: Podiatrist; Admitting Provider Internal Medicine; Emergency Provider Emergency Medicine; Visit Provider Internal Medicine
PROC: 0Y6P0Z0 Detachment at Right 1st Toe, Complete, Open Approach (ICD-10-PCS; principal; 2018-01-02 11:40)
DX: M86.8X7 Other osteomyelitis, ankle and foot (principal); M60.073 Infective myositis, right foot; L97.518 Non-pressure chronic ulcer of other part of right foot with other specified severity; L03.115 Cellulitis of right lower limb; L02.611 Cutaneous abscess of right foot; G62.9 Polyneuropathy, unspecified; M51.27 Other intervertebral disc displacement, lumbosacral region; R20.8 Other disturbances of skin sensation; A49.01 Methicillin susceptible Staphylococcus aureus infection, unspecified site
CPT/HCPCS: 36415; 73630; 73718; 80048; 82607; 82746; 83036; 85025; 85652; 86140; 87070; 87075; 87077; 87186; 87205; 87640; 88304; 88305; 88311; 88312; 99284; J7030; J7050; A4216; J0295; J2405